=== PATIENT | female | born 1990 | race Two or more races ===

== ENCOUNTER 2019-11-12 16:33 | Emergency (ER) | payer SELFPAY ==
[~2019-11-12] VITALS: Ht 162.6 cm; Wt 54.9 kg
[2019-11-12 18:59] VITALS: BP 95/54
== END 2019-11-12 19:05 | disposition home or self-care (01) ==
LOC: ER 16:33 → EDBD 16:33 → ER 19:05
DX: O26.891 Other specified pregnancy related conditions, first trimester (principal); M54.9 Dorsalgia, unspecified; Z3A.18 18 weeks gestation of pregnancy
CPT/HCPCS: 76805